=== PATIENT | male | born 2000 | race Caucasian/White ===

== ENCOUNTER 2020-09-18 12:55 | Emergency (ER) | payer OTHER, SELFPAY ==
[2020-09-18 13:17] VITALS: BP 134/80; PULSE 73; RESP 16; TEMP 37.3; O2SAT 98; BMI 28.3
--- NOTE | 2020-09-18 14:45 | ED_ITS ---
HPI - Wound/Laceration General Chief Complaint: Wound/Laceration Stated Complaint: finger lac work related Time Seen by Provider: 09/18/20 13:55 Source: patient Mode of arrival: ambulatory Limitations: no limitations History of Present Illness HPI narrative: 20-year-old male presenting to the ED with complaints of a finger laceration to left pinky finger when he attempted to catch meat blender blade as it fell to the ground while he was at work prior to arrival. Patient reports he is unsure if he is up-to-date on tetanus vaccine. Patient denies any other injuries complaints or concerns at this time. Related Data Previous Rx's Medication Instructions Recorded ibuprofen 800 mg PO Q8H PRN #14 tab 09/18/20 Allergies Allergy/AdvReac Type Severity Reaction Status Date / Time No Known Allergies Allergy Verified 09/18/20 13:11 Review of Systems Review of Systems: Constitutional : No Fever, No Chills, Respiratory : No Dyspnea Musculoskeletal : No Joint Swelling Skin : positive skin laceration, No Foreign bodies, No rash, No surrounding erythema Neuro : No Weakness, No Numbness/tingling Psych : No SI/HI/thoughts of self injury Yes all other systems are reviewed and are negative [facility] Past Medical History Attestation statement: The following information was validated with the patient. Medical History Asthma Social History Social History Advance Directives: No Advance Directives Information Provided: No Physical Exam Vital Signs: Vital Signs: Last Vital Signs Temp 99.2 F 09/18/20 13:17 Pulse 73 09/18/20 13:17 Resp 16 09/18/20 13:17 BP 134/80 09/18/20 13:17 Pulse Ox 98 09/18/20 13:17 Body Mass Index 28.3 vital signs have been reviewed as normal and appeared to be correct. Blood pressure normal. Heart rate normal. Respiration rate normal. Temperature normal. Oxygen saturation normal. Appearance: Alert. Oriented X3. No acute distress. Head: Normal external exam. Normocephalic. Atraumatic. Eyes: PERRLA. EOMI. Conjunctiva and sclera normal. Eyelids normal. ENT: Pharynx normal. Uvula midline. Moist mucous membranes. Neck: Normal inspection. Neck supple. FROM. No adenopathy. No meningeal signs. CVS: Normal heart rate and rhythm. Heart sound normal. No murmurs noted. Pulses normal throughout. Respiratory: No respiratory distress. Painless inspiration. Breath sounds normal. No wheezes/rales/rhonchi noted. Chest nontender. No accessory muscle usage noted or decreased air movement noted. Back: Full range of motion noted. Skin: Skin warm and dry. Normal skin color. Normal skin turgor. No rashes/lesions/lacerations noted. Extremities: To left 5th metacarpal distal aspect at the D IP at the ulnar aspect there is the 1 cm intermediate laceration that is linear. No foreign bodies noted. All other Extremities exhibit normal range of motion and nontender. Neuro: Oriented X 3. No motor deficit. No sensory deficit. Reflexes normal. Course Course Course Narrative: Patient is now status post laceration repair with [address] that are interrupted to left 5th metacarpal. No foreign bodies noted. Patient tolerated procedure well. Will update the patient's tetanus and instruct patient to return in 7-10 days for suture removal and to return sooner if any new or worsening symptoms. Patient understands agrees the plan. Procedures Laceration Laceration 1: Site: hand Side (If applicable): left Size (cm): 1 Description: linear Depth: simple, single layer Local Anesthetic: lidocaine 1% Amount of anesthesia used (mL): 1 Pre-repair: wound explored, irrigated extensively and deep structures intact Skin layer closed with: nylon Size (cm): 4-0 Number of sutures: 3 Technique: simple, interrupted MDM - Wound/Laceration Medical Records Attestation: I reviewed the patient's medical records. Discharge Plan Discharge Clinical Impression: Laceration Patient Disposition: Home, Self-Care Instructions: Diphtheria/Acellular Pertussis/Tetanus Booster Vaccine (Tdap) (By..., Laceration (ED) Prescriptions: New ibuprofen 800 mg tablet 800 mg PO Q8H PRN (Reason: pain) Qty: 14 RF: 0 Referrals: Guera Carrera PA [Emergency Midlevel Provider] - 10 days (For suture removal) Stand Alone Forms: Work/School Release Print Language: Divehi
[2020-09-18] MEDS: Lidocaine HCl 1 % MPF 5 ML VIAL SUBCUT (14:56)
== END 2020-09-18 15:04 | disposition home or self-care (01) ==
PROVIDERS: Emergency Provider Emergency Medicine; PCP Family Medicine
DX: S61.217A Laceration without foreign body of left little finger without damage to nail, initial encounter (principal); S60.417A Abrasion of left little finger, initial encounter; M79.642 Pain in left hand; Y28.9XXA Contact with unspecified sharp object, undetermined intent, initial encounter; Y93.9 Activity, unspecified; Y92.000 Kitchen of unspecified non-institutional (private) residence as the place of occurrence of the external cause; Y99.9 Unspecified external cause status; Z23 Encounter for immunization
CPT/HCPCS: 12001; 90471; 90715; 99283; 99284

== ENCOUNTER 2020-09-29 01:51 | Emergency (ER) | payer OTHER, SELFPAY ==
[2020-09-29 02:33] VITALS: BP 136/76; PULSE 90; RESP 18; TEMP 36.8; O2SAT 100; BMI 25.7
--- NOTE | 2020-09-29 02:50 | ED_ITS ---
HPI - Wound/Laceration General Chief Complaint: Wound/Laceration Stated Complaint: Suture removal Time Seen by Provider: 09/29/20 02:50 Source: patient Mode of arrival: ambulatory History of Present Illness HPI narrative: This is a 20-year-old male who returns to the emergency department after having had a laceration repaired on 09/18/2020. He denies any complications such as redness, swelling, purulence drainage from the finger and denies any fevers, chills. Related Data Previous Rx's Medication Instructions Recorded ibuprofen 800 mg PO Q8H PRN #14 tab 09/18/20 ibuprofen 800 mg PO Q8H PRN #20 tab 09/18/20 Allergies Allergy/AdvReac Type Severity Reaction Status Date / Time No Known Allergies Allergy Verified 09/18/20 13:11 Review of Systems Review of Systems: Pertinent positives and negatives as stated in the HPI 10 point review systems is otherwise negative. [facility] Past Medical History Source: nursing notes reviewed Medical History Asthma Social History Social History Advance Directives: No Physical Exam Vital Signs: Vital Signs: Last Vital Signs Temp 98.3 F 09/29/20 02:33 Pulse 90 09/29/20 02:33 Resp 18 09/29/20 02:33 BP 136/76 09/29/20 02:33 Pulse Ox 100 09/29/20 02:33 Body Mass Index 25.7 VITAL SIGNS: Reviewed. GENERAL: Well developed, well nourished, in no acute distress. OROPHARYNX: no oral lesions noted, posterior pharynx clear NECK: Supple, no adenopathy LUNGS: Normal breath sounds. CARDIOVASCULAR: Regular rate and rhythm without noted murmurs ABDOMEN: Soft, non-tender, non-distended LEFT 5TH DIGIT: WELL-HEALED LACERATION TO THE LATERAL ASPECT WITHOUT ERYTHEMA, INDURATION, PURULENCE DRAINAGE NEUROLOGIC: Alert and oriented x 4. Course Course Course Narrative: This is a 20-year-old male with history and clinical presentation consistent with laceration of left 5th digit on 09/18 which is healing well without evidence of infection and 3 sutures were removed without any complications and patient was discharged home in stable condition. Discharge Plan Discharge Clinical Impression: Encounter for removal of sutures Patient Disposition: Home, Self-Care Instructions: Stitches Removal (ED) Additional Instructions: Please do not hesitate to return to the emergency department should you experience any worsening or new symptoms. Prescriptions: No Action ibuprofen 800 mg tablet 800 mg PO Q8H PRN (Reason: pain) Qty: 14 RF: 0 ibuprofen 800 mg tablet 800 mg PO Q8H PRN (Reason: pain) Qty: 20 RF: 0
== END 2020-09-29 03:09 | disposition home or self-care (01) ==
PROVIDERS: Emergency Provider Student in an Organized Health Care Education/Training Program
DX: Z48.02 Encounter for removal of sutures (principal); Z79.899 Other long term (current) drug therapy
CPT/HCPCS: 99283